=== PATIENT | male | born 1985 | race African-American/Black ===

== ENCOUNTER 2016-07-23 03:34 | Emergency (ER) | payer SELFPAY ==
[2016-07-23] MEDS ORDERED: predniSONE 20 MG TAB ONE (04:42)
[2016-07-23] MEDS ORDERED: Ibuprofen 800 MG TAB ONE (04:42)
[2016-07-23] MEDS ORDERED: Acetaminophen/Codeine 30-300mg Tablet ONE (04:42)
== END 2016-07-23 04:58 | disposition home or self-care (01) ==
LOC: MADERS 03:34
DX: G56.01 Carpal tunnel syndrome, right upper limb (principal)
CPT/HCPCS: 99284; J7506